=== PATIENT | female | born 1945 | race Caucasian/White ===

== ENCOUNTER 2023-11-15 14:27 | Emergency (ER) | payer OTHER, MEDICARE ==
[2023-11-15 14:53] VITALS: BP 114/59; RESP 18; TEMP 98; BMI 22.6
[2023-11-15] MEDS ORDERED: ALBUTEROL SO4 0.083% IH SOL 2.5 MG/3 ML VIAL.NEB. NEB ONE (15:37)
[2023-11-15] MEDS: ALBUTEROL SO4 0.083% IH SOL 2.5 MG/3 ML VIAL.NEB. NEB ONE (15:40)
[2023-11-15] MEDS: MOMETASONE FUROATE 110 MCG/IH INHALER IH SCH (16:52)
[2023-11-15] MEDS: BUDESONIDE 0.5 MG/2 ML INH SUSP VIAL NEB ONE (16:52)
[2023-11-15 17:26] VITALS: PULSE 89
[2023-11-15] MEDS ORDERED: MOMETASONE FUROATE 220 MCG/IH INHALER IH SCH (22:00)
== END 2023-11-15 17:50 | disposition home or self-care (01) ==
LOC: FER 14:27
PROC: 3E0F7GC Introduction of Other Therapeutic Substance into Respiratory Tract, Via Natural or Artificial Opening (ICD-10-PCS; principal; 2023-11-15)
PROC: 3E0F7GC Introduction of Other Therapeutic Substance into Respiratory Tract, Via Natural or Artificial Opening (ICD-10-PCS; 2023-11-15)
DX: J06.9 Acute upper respiratory infection, unspecified (principal); J45.909 Unspecified asthma, uncomplicated; R09.02 Hypoxemia; J02.9 Acute pharyngitis, unspecified; R05.9 Cough, unspecified; R53.81 Other malaise; R50.9 Fever, unspecified; R07.89 Other chest pain
CPT/HCPCS: 99284-25